=== PATIENT | male | born 1965 | race Caucasian/White ===

== ENCOUNTER 2022-03-30 13:25 | Emergency (ER) | payer OTHER ==
[~2022-03-30] VITALS: Ht 180.3 cm; Wt 104.3 kg
[2022-03-30 13:36] VITALS: BP 120/85
[2022-03-30 13:46] LABS: BILIRUBIN,URINE NEGATIVE (NEGATIVE); CLARITY,URINE CLEAR; COLOR,URINE YELLOW; GLUCOSE, URINE (UA) NEGATIVE (NEGATIVE); KETONES,URINE NEGATIVE (NEGATIVE); LEUKOCYTE ESTERASE ,URINE NEGATIVE (NEGATIVE); NITRITE,URINE NEGATIVE (NEGATIVE); PH,URINE 6.5 (5-9); PROTEIN,URINE NEGATIVE (NEGATIVE)
[2022-03-30 13:53] LABS: BACTERIA,URINE NEGATIVE /HPF; WBC,URINE RARE /HPF
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
[2022-03-30] MEDS ORDERED: CEPH500T PO (14:13)
== END 2022-03-30 14:22 | disposition home or self-care (01) ==
LOC: EDUNIT# 13:25 → ER 13:30
DX: N30.90 Cystitis, unspecified without hematuria (principal)
CPT/HCPCS: 81000; 87077; 87088; 99282